=== PATIENT | female | born 1960 | race American Indian/Alaskan Native ===

== ENCOUNTER 2016-09-14 17:28 | Emergency (ER) | payer MEDICAID ==
[2016-09-14 17:42] VITALS: BP 103/65
[2016-09-14 18:18] LABS: Basophils % (Auto) 1.9 % (0.0-1.8); Eosinophils % (Auto) 1.9 % (0.0-4.3); Hematocrit 35.6 % (30.3-42.9); Hemoglobin 11.6 gm/dl (10.1-14.3); Mean Corpuscular HGB Conc 33 % (30-34); Mean Corpuscular Hemoglobin 27 pg (28-32); Mean Corpuscular Volume 83 fl (79-97); Platelet Count 389 K/mm3 (140-440); Red Blood Count 4.31 M/mm3 (3.65-5.03); Red Cell Distribution Width 14.9 % (13.2-15.2); White Blood Count 7.5 K/mm3 (4.5-11.0)
[2016-09-14 19:04] LABS: Alanine Aminotransferase 5 units/L (7-56); Albumin 4.2 g/dL (3.9-5); Albumin/Globulin Ratio 1.4 %; Alkaline Phosphatase 141 units/L (35-129); Anion Gap 17 mmol/L; BUN/Creatinine Ratio 13.75; Bilirubin,Total < 0.2 mg/dL (0.1-1.2); Blood Urea Nitrogen 11 mg/dL (7-17); Carbon Dioxide 25 mmol/L (22-30); Chloride 98.3 mmol/L (98-107); Glucose 75 mg/dL (65-100); Lipase 28 units/L (13-60); Potassium 4.6 mmol/L (3.6-5.0); Sodium 136 mmol/L (137-145); Total Protein 7.3 g/dL (6.3-8.2)
[2016-09-14 19:08] LABS: Bacteria,Urine 2+ /HPF (Negative); Bilirubin,Urine NEG (Negative); Blood,Urine NEG (Negative); Ketones,Urine NEG (Negative); Leukocyte Esterase,Urine NEG (Negative); Mucus,Urine FEW /HPF; Nitrite,Urine NEG (Negative); Protein,Urine <15 mg/dL mg/dL (Negative); Urobilinogen,Urine < 2.0 mg/dL (<2.0)
--- NOTE | 2016-09-16 16:42 | ED Elopement Review ---
ED Pt Elopement review - Results review Lab results: Laboratory Tests 09/14/16 09/14/16 09/14/16 18:06 18:06 18:16 WBC 7.5 RBC 4.31 Hgb 11.6 Hct 35.6 MCV 83 MCH 27 L MCHC 33 RDW 14.9 Plt Count 389 Lymph % (Auto) 42.6 H [place] % (Auto) 7.4 H Eos % (Auto) 1.9 Baso % (Auto) 1.9 H Lymph # 3.2 [place] # 0.6 Eos # 0.1 Baso # 0.1 Seg Neutrophils % 46.2 Seg Neutrophils # 3.5 Sodium 136 L Potassium 4.6 Chloride 98.3 Carbon Dioxide 25 Anion Gap 17 BUN 11 Creatinine 0.8 Estimated GFR > 60 BUN/Creatinine Ratio 13.75 Glucose 75 Calcium 9.0 Total Bilirubin < 0.2 AST 11 ALT 5 L Alkaline Phosphatase 141 H Total Protein 7.3 Albumin 4.2 Albumin/Globulin Ratio 1.4 Lipase 28 Urine Color Yellow Urine Turbidity Clear Urine pH 5.0 Ur Specific [place] 1.013 Urine Protein <15 mg/dl Urine Glucose (UA) Neg Urine Ketones Neg Urine Blood Neg Urine Nitrite Neg Urine Bilirubin Neg Urine Urobilinogen < 2.0 Ur Leukocyte Esterase Neg Urine WBC (Auto) 1.0 Urine RBC (Auto) 1.0 U Epithel Cells (Auto) 1.0 Urine Bacteria (Auto) 2+ Urine Mucus Few - Call Back decision Pt Call Back Decision: No action required
== END 2016-09-14 22:21 | disposition left against medical advice (07) ==
LOC: ED 17:28
DX: R45.851 Suicidal ideations (principal); R10.9 Unspecified abdominal pain; Z53.21 Procedure and treatment not carried out due to patient leaving prior to being seen by health care provider
CPT/HCPCS: 36415; 80053; 81001; 83690; 85025; 93005; 93010

== ENCOUNTER 2016-11-19 15:23 | Emergency (ER) | payer MEDICAID ==
[2016-11-19 16:37] LABS: Urine Drugs of Abuse Note Disclamer
[2016-11-19 16:53] LABS: Basophils % (Auto) 0.8 % (0.0-1.8); Eosinophils % (Auto) 2.1 % (0.0-4.3); Hemoglobin 11.1 gm/dl (10.1-14.3); Mean Corpuscular HGB Conc 33 % (30-34); Mean Corpuscular Hemoglobin 27 pg (28-32); Mean Corpuscular Volume 82 fl (79-97); Platelet Count 291 K/mm3 (140-440); Red Blood Count 4.14 M/mm3 (3.65-5.03); Red Cell Distribution Width 17.5 % (13.2-15.2); White Blood Count 7.3 K/mm3 (4.5-11.0)
[2016-11-19 17:02] LABS: Bacteria,Urine 2+ /HPF (Negative); Bilirubin,Urine NEG (Negative); Blood,Urine NEG (Negative); Ketones,Urine NEG (Negative); Leukocyte Esterase,Urine NEG (Negative); Mucus,Urine FEW /HPF; Nitrite,Urine NEG (Negative); Protein,Urine <15 mg/dL mg/dL (Negative); Urobilinogen,Urine < 2.0 mg/dL (<2.0); WBC,Urine < 1.0 /HPF (0.0-6.0)
[2016-11-19 17:03] LABS: RBC,Urine < 1.0 /HPF (0.0-6.0)
[2016-11-19 17:11] LABS: Anion Gap 16 mmol/L; BUN/Creatinine Ratio 14.28; Blood Urea Nitrogen 10 mg/dL (7-17); Calcium 8.7 mg/dL (8.4-10.2); Carbon Dioxide 24 mmol/L (22-30); Chloride 99.3 mmol/L (98-107); Glucose 120 mg/dL (65-100); Potassium 3.9 mmol/L (3.6-5.0); Sodium 135 mmol/L (137-145)
[2016-11-19] MEDS ORDERED: ZOFRAN IV ONE (21:58)
[2016-11-19] MEDS ORDERED: NACL 0.9% 1000 ML 1,000 ML IV ONE (21:58)
[2016-11-19] MEDS ORDERED: DILAUDID IV ONE (21:58)
--- NOTE | 2016-11-19 22:04 | Emergency Department Report ---
ED General Adult HPI - General Chief complaint: Psych Stated complaint: DEPRESSION Time Seen by Provider: 11/19/16 21:49 Source: patient Mode of arrival: Ambulatory Limitations: No Limitations - History of Present Illness Initial comments: This is a 56-year-old female who presents to the ED initially because of headache. She states that while she was waiting in the waiting room that the headache settled into her pancreas. She states she does have a history of chronic pancreatitis. She is had numerous pancreas problems since having her gallbladder removed last year with subsequent bile leak and else associated acute pancreatitis that converted to pump chronic pancreatitis. Patient was given a prescription for Percocet 10 mg tablets in May of last year. She just ran out out a week ago. She states that she is usually able to control her pains pretty well. He denies significant nausea but there is mild component of this. She denies any specific trauma. She does not drink any alcohol whatsoever. She denies any illicit drug use as well. Patient indicates as well that she has major depression. She takes Effexor for her depression. She states this controls her depression quite well in general. She follows up with a day program in the area. She states this is beneficial thing in her life she feels that she is doing relatively well in general. When I ask her specifically about suicidal ideations., She indicates that she feels like she wants evaluation is experiencing the pain she has with pancreatitis but reports when she is otherwise feeling fine that she does not have these thoughts of harm to herself. She denies any homicidal ideations. She denies any auditory or visual hallucinations. Patient states that she would never act out on a suicidal comment as those she is making today. Severity scale (0 -10): 10 - Related Data Previous Rx's Medication Instructions Recorded Last Taken Type Oxycodone HCl/Acetaminophen 1 each PO Q6HR PRN #30 tablet 11/20/16 Unknown Rx [Percocet 10/325 mg] Allergies Allergy/AdvReac Type Severity Reaction Status Date / Time bupropion HCl AdvReac Hives Verified 09/14/16 17:45 [From Wellbutrin] ketorolac tromethamine AdvReac Hives Verified 09/14/16 17:45 [From Toradol] sumatriptan [From Imitrex] AdvReac Hives Verified 09/14/16 17:45 sumatriptan succinate AdvReac Hives Verified 09/14/16 17:45 [From Imitrex] ED Review of Systems ROS: Stated complaint: DEPRESSION Other details as noted in HPI Comment: All other systems reviewed and negative Constitutional: denies: chills, fever Eyes: denies: eye pain, eye discharge, vision change ENT: denies: ear pain, throat pain Respiratory: denies: cough, shortness of breath, wheezing Cardiovascular: denies: chest pain, palpitations Endocrine: no symptoms reported Gastrointestinal: abdominal pain, nausea. denies: diarrhea Genitourinary: denies: urgency, dysuria, discharge Musculoskeletal: denies: back pain, joint swelling, arthralgia Skin: denies: rash, lesions Neurological: headache. denies: weakness, paresthesias Psychiatric: depression, suicidal thoughts. denies: anxiety Hematological/Lymphatic: denies: easy bleeding, easy bruising ED Past Medical Hx - Past Medical History Previous Medical History?: Yes Hx Headaches / Migraines: Yes Hx Psychiatric Treatment: Yes Hx COPD: Yes Additional medical history: pancreatitis, ulcers vaginal rectal CA - Surgical History Past Surgical History?: Yes Hx Cholecystectomy: Yes Hx Appendectomy: Yes - Social History Smoking Status: Current Every Day Smoker Substance Use Type: Prescribed - Medications Home Medications: Home Medications Medication Instructions Recorded Confirmed Last Taken Type Oxycodone HCl/Acetaminophen 1 each PO Q6HR PRN #30 tablet 11/20/16 Unknown Rx [Percocet 10/325 mg] ED Physical Exam - General Limitations: No Limitations General appearance: alert, in distress (mild discomfort), other (wearing darkened sunglasses) - Head Head exam: Present: atraumatic, normocephalic - Eye Eye exam: Present: normal appearance, EOMI. Absent: scleral icterus - ENT ENT exam: Present: normal exam, normal orophraynx, mucous membranes moist, other (no temporal artery tenderness) - Neck Neck exam: Present: normal inspection, full ROM. Absent: tenderness, meningismus, lymphadenopathy - Respiratory Respiratory exam: Present: normal lung sounds bilaterally. Absent: respiratory distress, wheezes, rales - Cardiovascular Cardiovascular Exam: Present: regular rate, normal rhythm. Absent: systolic murmur, diastolic murmur, rubs, gallop - GI/Abdominal GI/Abdominal exam: Present: soft, tenderness (epigastric region.), normal bowel sounds. Absent: guarding, rebound, organomegaly, pulsatile mass - Extremities Exam Extremities exam: Present: normal inspection, normal capillary refill. Absent: tenderness, pedal edema, calf tenderness - Back Exam Back exam: Present: normal inspection. Absent: tenderness, CVA tenderness (R), CVA tenderness (L) - Neurological Exam Neurological exam: Present: alert, oriented X3 - Psychiatric Psychiatric exam: Present: normal affect, normal mood - Skin Skin exam: Present: warm, dry, intact, normal color. Absent: rash ED Course Vital Signs 11/19/16 11/19/16 11/19/16 15:43 17:47 20:36 Temperature 97.8 F 98.4 F Pulse Rate 86 86 76 Respiratory 20 18 20 Rate Blood Pressure 123/78 119/72 130/70 Blood Pressure [Left] O2 Sat by Pulse 98 100 Oximetry 11/19/16 22:45 Temperature Pulse Rate 79 Respiratory 18 Rate Blood Pressure Blood Pressure 104/72 [Left] O2 Sat by Pulse 98 Oximetry - Reevaluation(s) Reevaluation #1: 11/19/16 22:03 Patient very articulate and appropriate for me here. She does noel very openly that she does have a high pain tolerance and threshold. She also indicates that it takes a large amount of pain medication when she does have pain to get it under control. She again states that she only received this one prescription the last 6 months. She has been able to make it last for the entire time. My initial impression of her as I do not deem her as a legitimate suicidal risk. She does get appropriate follow-up and knows how to access her therapist. She is on antidepressants and is compliant with it. She recognizes with good insight etiology of her issue is mostly pain discomfort and she is seeking care for this at this time. Reevaluation #2: 11/20/16 00:13 Patient did receive pain medications with moderate to good result. She was noted to be quite somnolent after Dilaudid administration. She did actually require supplemental oxygen. After the medication she is actually requesting more medication. I told her did not feel this was responsible thing to do. I do not get the impression that she is drug-seeking. I feel that she likely has legitimate pains but she just doesn't know how to adequately manage her pain. I do think there is a psychiatric component of this as well. It is a long conversation again with the patient regarding depression and suicidal ideations. She is not actively suicidal nor do I have concerns with sending her home. She has very good insight. She has very good follow-up with a therapist that she is comfortable with and she does not access health care as well as being compliant with her pain medications. I will write her for some more pain medication to get by the next little while. I did encourage her to follow up with her GI doctor to consider joint terminal attack controller management of her pain. This will be an ongoing issue for her return to the chronic pancreatitis. She also agrees to follow up with her therapist later this week. ED Medical Decision Making - Lab Data Result diagrams: 11/19/16 16:35 11/19/16 16:35 Critical care attestation.: If time is entered above; I have spent that time in minutes in the direct care of this critically ill patient, excluding procedure time. ED Disposition Clinical Impression: Pancreatitis, chronic Qualifiers: Pancreatitis type: biliary Qualified Code(s): K86.1 - Other chronic pancreatitis Cephalgia Qualifiers: Headache chronicity pattern: acute headache Intractability: not intractable Depression Qualifiers: Depression Type: major depressive disorder Major depression recurrence: recurrent Active/Remission status: currently active Major depression episode severity: moderate Qualified Code(s): F33.1 - Major depressive disorder, recurrent, moderate Disposition: DISCHARGED TO HOME OR SELFCARE Is pt being admited?: No Does the pt Need Aspirin: No Condition: Stable Additional Instructions: Follow-up with your therapist later this week. Take your medications as prescribed. Follow-up with your GI doctor regarding her chronic pancreatitis. Be careful with your diet. Use your pain medication responsibly. Consider follow-up for pain management. Prescriptions: Oxycodone HCl/Acetaminophen [Percocet 10/325 mg] 1 each PO Q6HR PRN #30 tablet PRN Reason: Pain Referrals: PRIMARY CARE, [Primary Care Provider] - 3-5 Days Time of Disposition: 00:16
[2016-11-20 02:58] VITALS: BP 139/65
== END 2016-11-20 03:00 | disposition home or self-care (01) ==
LOC: ED 15:23 → EEVIPCON 15:23 → ED 11-20 03:00
DX: K86.1 Other chronic pancreatitis (principal); R51 Headache; F33.1 Major depressive disorder, recurrent, moderate; G43.909 Migraine, unspecified, not intractable, without status migrainosus; J44.9 Chronic obstructive pulmonary disease, unspecified; Z90.49 Acquired absence of other specified parts of digestive tract; Z90.89 Acquired absence of other organs; F17.200 Nicotine dependence, unspecified, uncomplicated; Z88.8 Allergy status to other drugs, medicaments and biological substances
CPT/HCPCS: 36415; 80048; 80307; 81001; 85025; 96361; 96374; 96375; 99283; G0480; J1170; J2405; J7030; 80320

== ENCOUNTER 2016-11-20 08:43 | Emergency (ER) | payer MEDICAID ==
[2016-11-20] MEDS ORDERED: DILAUDID IM ONE (12:04)
[2016-11-20] MEDS ORDERED: ZOFRAN IM ONE (12:04)
[2016-11-20 13:05] LABS: Alanine Aminotransferase 17 units/L (7-56); Albumin 3.5 g/dL (3.9-5); Albumin/Globulin Ratio 1.2 %; Alkaline Phosphatase 113 units/L (35-129); Bilirubin,Total < 0.2 mg/dL (0.1-1.2); Lipase 24 units/L (13-60); Total Protein 6.4 g/dL (6.3-8.2)
[2016-11-20 13:07] LABS: Bilirubin,Direct < 0.2 mg/dL (0-0.2)
--- NOTE | 2016-11-20 14:09 | Emergency Department Report ---
ED Abdominal Pain HPI - General Chief Complaint: Pain General Stated Complaint: GENERAL PAIN Time Seen by Provider: 11/20/16 11:19 Source: patient Mode of arrival: Ambulatory Limitations: No Limitations - History of Present Illness Initial Comments: 56 year old female with a past medical history COPD, migraines, major depression rectal cancer, and chronic pancreatitis with previous cholecystectomy , appendectomy presents to the hospital complains of epigastric abdominal pain. Patient states pain is typical to previous bouts of chronic pancreatitis. Pain is stabbing, constant, radiates to the back. Positive Associated nausea without vomiting. Patient was seen here yesterday for the same symptoms by Dr. Proctor. Patient was discharged home with Percocet and was in the waiting room awaiting her ride back home. Transport never showed up. Patient also attempted to fill Percocet at pharmacy across the street but because she only has a photocopy of her IV they would not fill the medication. Patient tends to have a friend to the medication somehow when she gets home since she has lost her her copy of her ID. She checked back in requesting medication for pain and nausea since they have worsened during her wait for a ride home. Pain is rated 10/10 intensity, constant, worse with palpation and improved with narcotic pain medication Severity scale (0 -10): 2 - Related Data Previous Rx's Medication Instructions Recorded Last Taken Type Ondansetron [Zofran Odt] 4 mg PO Q8HR PRN #20 tab.rapdis 11/20/16 Unknown Rx Oxycodone HCl/Acetaminophen 1 each PO Q6HR PRN #30 tablet 11/20/16 Unknown Rx [Percocet 10/325 mg] Allergies Allergy/AdvReac Type Severity Reaction Status Date / Time bupropion HCl AdvReac Hives Verified 09/14/16 17:45 [From Wellbutrin] ketorolac tromethamine AdvReac Hives Verified 09/14/16 17:45 [From Toradol] sumatriptan [From Imitrex] AdvReac Hives Verified 09/14/16 17:45 sumatriptan succinate AdvReac Hives Verified 09/14/16 17:45 [From Imitrex] ED Review of Systems ROS: Stated complaint: GENERAL PAIN Other details as noted in HPI Comment: All other systems reviewed and negative Other: Constitutional: No fevers chills or weight loss Eyes: No eye pain visual changes or discharge ENT: No ear pain or throat pain Neck: Denies pain Respiratory: Denies cough wheezing shortness of breath Cardiovascular: Denies chest pain, palpitations, syncope GI: as per hpi : Denies dysuria Musculoskeletal: Denies back pain, joint swelling Skin: Denies rash, lesions, erythema Neurologic: Denies headache, numbness, weakness Psychiatric: Denies suicidal ideation, hallucinations ED Past Medical Hx - Past Medical History Previous Medical History?: Yes Hx Headaches / Migraines: Yes Hx Psychiatric Treatment: Yes (major depression) Hx COPD: Yes Additional medical history: pancreatitis, ulcers vaginal rectal CA - Surgical History Past Surgical History?: Yes Hx Cholecystectomy: Yes Hx Appendectomy: Yes - Social History Smoking Status: Current Every Day Smoker Substance Use Type: Alcohol, Non Opiate Pain, Prescribed - Medications Home Medications: Home Medications Medication Instructions Recorded Confirmed Last Taken Type Ondansetron [Zofran Odt] 4 mg PO Q8HR PRN #20 tab.rapdis 11/20/16 Unknown Rx Oxycodone HCl/Acetaminophen 1 each PO Q6HR PRN #30 tablet 11/20/16 Unknown Rx [Percocet 10/325 mg] ED Physical Exam - General Limitations: No Limitations - Other Other exam information: General: No limitations, patient is alert in no acute distress Head exam: Atraumatic, normocephalic Eyes exam: Normal appearance, pupils equal reactive to light, extraocular movements intact ENT: Moist mucous membrane, normal oropharynx Neck exam: Normal inspection, full range of motion, no meningismus nontender Respiratory exam: Clear to auscultation bilateral, no wheezes, rales, crackles Cardiovascular: Normal rate and rhythm, normal heart sounds Abdomen: Soft, nondistended, epigastric tenderness, with normal bowel sounds, no rebound, or guarding Extremity: Full range of motion normal inspection no deformity Back: Normal Inspection, full range of motion, no tenderness Neurologic: Alert, oriented x3, cranial nerves intact, no motor or sensory deficit Psychiatric: normal affect, normal mood Skin: Warm, dry, intact ED Course Vital Signs 11/20/16 11/20/16 08:48 12:54 Temperature 98.1 F Pulse Rate 77 Respiratory 20 Rate Blood Pressure 129/82 O2 Sat by Pulse 100 98 Oximetry - Reevaluation(s) Reevaluation #1: 11/20/16 14:17 Pain improved with Dilaudid and Zofran IM. No vomiting and ED. ED Medical Decision Making - Medical Decision Making Labs from last night reviewed and patient had LFTs and cardiac enzymes drawn with this visit which were normal. Patient is not actively vomiting and pain is controlled. She will be discharged with same plan to fill her currently prescribed medication and to follow up with her primary care doctor - Differential Diagnosis drug-seeking, pancreatitis, otitis, gastritis Critical Care Time: No Critical care attestation.: If time is entered above; I have spent that time in minutes in the direct care of this critically ill patient, excluding procedure time. ED Disposition Clinical Impression: Pancreatitis, chronic Disposition: DISCHARGED TO HOME OR SELFCARE Is pt being admited?: No Does the pt Need Aspirin: No Condition: Stable Instructions: Pancreatitis (ED) Additional Instructions: Taken currently prescribed medications as needed. Return if symptoms worsen. Prescriptions: Ondansetron [Zofran Odt] 4 mg PO Q8HR PRN #20 tab.rapdis PRN Reason: Nausea And Vomiting Referrals: PRIMARY CARE, [Primary Care Provider] - 3-5 Days [facility] [Provider Group] - 3-5 Days Time of Disposition: 14:19
[2016-11-20 14:37] VITALS: BP 110/62
== END 2016-11-20 14:50 | disposition home or self-care (01) ==
LOC: ED 08:43
DX: K86.1 Other chronic pancreatitis (principal); G43.909 Migraine, unspecified, not intractable, without status migrainosus; F32.9 Major depressive disorder, single episode, unspecified; J44.9 Chronic obstructive pulmonary disease, unspecified; F17.200 Nicotine dependence, unspecified, uncomplicated; Z90.49 Acquired absence of other specified parts of digestive tract; Z88.8 Allergy status to other drugs, medicaments and biological substances
CPT/HCPCS: 36415; 80074; 83690; 96372; 99283; J1170; J2405

== ENCOUNTER 2016-11-28 15:27 | Emergency (ER) | payer MEDICAID ==
[2016-11-28 16:33] LABS: Basophils % (Auto) 0.8 % (0.0-1.8); Eosinophils % (Auto) 1.8 % (0.0-4.3); Hematocrit 33.4 % (30.3-42.9); Mean Corpuscular HGB Conc 33 % (30-34); Mean Corpuscular Hemoglobin 27 pg (28-32); Mean Corpuscular Volume 83 fl (79-97); Platelet Count 212 K/mm3 (140-440); Red Blood Count 4.04 M/mm3 (3.65-5.03); Red Cell Distribution Width 17.6 % (13.2-15.2); White Blood Count 7.4 K/mm3 (4.5-11.0)
[2016-11-28 16:43] LABS: Bilirubin,Urine NEG (Negative); Blood,Urine NEG (Negative); Ketones,Urine NEG (Negative); Leukocyte Esterase,Urine NEG (Negative); Mucus,Urine FEW /HPF; Nitrite,Urine NEG (Negative); Protein,Urine <15 mg/dL mg/dL (Negative); RBC,Urine < 1.0 /HPF (0.0-6.0); Urobilinogen,Urine < 2.0 mg/dL (<2.0)
[2016-11-28 16:52] LABS: Alanine Aminotransferase 18 units/L (7-56); Albumin 3.7 g/dL (3.9-5); Albumin/Globulin Ratio 1.5 %; Alkaline Phosphatase 102 units/L (35-129); Anion Gap 16 mmol/L; BUN/Creatinine Ratio 6.15; Bilirubin,Total < 0.2 mg/dL (0.1-1.2); Blood Urea Nitrogen 8 mg/dL (7-17); Calcium 8.6 mg/dL (8.4-10.2); Carbon Dioxide 24 mmol/L (22-30); Chloride 102.7 mmol/L (98-107); Glucose 81 mg/dL (65-100); Lipase 33 units/L (13-60); Potassium 4.3 mmol/L (3.6-5.0); Sodium 138 mmol/L (137-145); Total Protein 6.1 g/dL (6.3-8.2)
[2016-11-29] MEDS: MORPHINE IV ONE (01:08)
--- NOTE | 2016-11-29 01:34 | Emergency Department Report ---
ED Abdominal Pain HPI - General Chief Complaint: Abdominal Pain Stated Complaint: abdominal pain Time Seen by Provider: 11/29/16 00:02 Source: patient Mode of arrival: Ambulatory Limitations: No Limitations - History of Present Illness Initial Comments: Patient is a 56-year-old woman with a history of chronic pancreatitis presenting with right upper quadrant and left upper quadrant pain. Patient reports she's been treated by a doctor non-at another hospital for chronic pancreatitis with unknown etiology. Patient now reports to her last tablet of Percocet yesterday and now has no more pain medication. Patient does report she finished 30 tabs in 5 days. Otherwise no fevers, chills, vomiting, chest pain, trauma, antibiotic use, recent surgery, travel, or sick contacts MD Complaint: abdominal pain -: month(s) Location: LUQ, RUQ Severity scale (0 -10): 10 Consistency: constant Improves With: medication Worsens With: nothing - Related Data Previous Rx's Medication Instructions Recorded Last Taken Type Ondansetron [Zofran ODT TAB] 4 mg PO Q8HR PRN #20 tab.rapdis 11/29/16 Unknown Rx Oxycodone HCl/Acetaminophen 1 each PO Q6HR PRN #12 tablet 11/29/16 Unknown Rx [Percocet 10/325 mg] Allergies Allergy/AdvReac Type Severity Reaction Status Date / Time bupropion HCl AdvReac Hives Verified 09/14/16 17:45 [From Wellbutrin] ketorolac tromethamine AdvReac Hives Verified 09/14/16 17:45 [From Toradol] sumatriptan [From Imitrex] AdvReac Hives Verified 09/14/16 17:45 sumatriptan succinate AdvReac Hives Verified 09/14/16 17:45 [From Imitrex] ED Review of Systems ROS: Stated complaint: PASSED OUT/SEVERE MIGRAINE Other details as noted in HPI Comment: All other systems reviewed and negative ED Past Medical Hx - Past Medical History Previous Medical History?: Yes Hx Headaches / Migraines: Yes Hx Psychiatric Treatment: Yes (major depression) Hx COPD: Yes Additional medical history: pancreatitis, ulcers vaginal rectal CA - Surgical History Hx Cholecystectomy: Yes Hx Appendectomy: Yes - Social History Smoking Status: Never Smoker Substance Use Type: None - Medications Home Medications: Home Medications Medication Instructions Recorded Confirmed Last Taken Type Ondansetron [Zofran ODT TAB] 4 mg PO Q8HR PRN #20 tab.rapdis 11/29/16 Unknown Rx Oxycodone HCl/Acetaminophen 1 each PO Q6HR PRN #12 tablet 11/29/16 Unknown Rx [Percocet 10/325 mg] ED Physical Exam - General Limitations: No Limitations General appearance: alert, in no apparent distress - Head Head exam: Present: atraumatic, normocephalic - Eye Eye exam: Present: normal appearance - ENT ENT exam: Present: mucous membranes moist - Neck Neck exam: Present: normal inspection - Respiratory Respiratory exam: Present: normal lung sounds bilaterally. Absent: respiratory distress - Cardiovascular Cardiovascular Exam: Present: regular rate, normal rhythm. Absent: systolic murmur, diastolic murmur, rubs, gallop - GI/Abdominal GI/Abdominal exam: Present: soft, tenderness (RUQ and SUN), normal bowel sounds, other (laparoscopic scars). Absent: distended (RUQ and LUQ), guarding, rebound , rigid - Extremities Exam Extremities exam: Present: normal inspection - Back Exam Back exam: Present: normal inspection - Neurological Exam Neurological exam: Present: alert, oriented X3 - Psychiatric Psychiatric exam: Present: normal affect, normal mood - Skin Skin exam: Present: warm, dry, intact, normal color. Absent: rash ED Course Vital Signs 11/28/16 11/28/16 11/29/16 16:02 21:13 00:49 Temperature 98 F 97.9 F Pulse Rate 80 68 56 L Respiratory 20 18 14 Rate Blood Pressure 121/64 128/87 127/75 O2 Sat by Pulse 100 100 97 Oximetry 11/29/16 11/29/16 00:56 01:50 Temperature Pulse Rate Respiratory 18 20 Rate Blood Pressure O2 Sat by Pulse 99 Oximetry ED Medical Decision Making - Lab Data Result diagrams: 11/28/16 16:18 11/28/16 16:18 - EKG Data -: EKG Interpreted by Me ([id number]) EKG shows normal: sinus rhythm, axis (normal axis), intervals (QTc:407ms), ST-T waves ((-)ST/T changes, no STEMI) Critical care attestation.: If time is entered above; I have spent that time in minutes in the direct care of this critically ill patient, excluding procedure time. ED Disposition Clinical Impression: Abdominal pain Disposition: DISCHARGED TO HOME OR SELFCARE Is pt being admited?: No Condition: Stable Instructions: Abdominal Pain (ED) Prescriptions: Ondansetron [Zofran ODT TAB] 4 mg PO Q8HR PRN #20 tab.rapdis PRN Reason: Nausea And Vomiting Oxycodone HCl/Acetaminophen [Percocet 10/325 mg] 1 each PO Q6HR PRN #12 tablet PRN Reason: Pain Referrals: PRIMARY CARE,MD [Primary Care Provider] - 3-5 Days
[2016-11-29] MEDS: ZOFRAN IV ONE (01:50)
[2016-11-29] MEDS: SUBLIMAZE IV ONE (01:50)
[2016-11-29] MEDS: NACL 0.9% 1000 ML 1,000 ML IV ONE (01:55)
[2016-11-29] MEDS: EFFEXOR PO ONE (05:18)
[2016-11-29] MEDS: TYLENOL PO ONE (08:54)
[2016-11-29] MEDS: HABITROL TD ONE (08:55)
[2016-11-29 09:27] VITALS: BP 93/68
--- NOTE | 2016-11-29 15:45 | Emergency Department Report ---
Blank Doc - Documentation Documentation: Patient has been evaluated by mental health. Patient is currently denying suicidal thoughts. She states she began having suicidal thoughts following medication administration. Mental health recommendation is to increase in the 1013 and discharge the patient home with outpatient referral. I have reexamined the patient and agreed that the patient is no longer suicidal and does not meet inpatient criteria. Form 1013 will be rescinded and the patient will be discharged at this time.
== END 2016-11-29 15:30 | disposition home or self-care (01) ==
LOC: ED 15:27
DX: R10.11 Right upper quadrant pain (principal); G43.909 Migraine, unspecified, not intractable, without status migrainosus; J44.9 Chronic obstructive pulmonary disease, unspecified; F32.9 Major depressive disorder, single episode, unspecified
CPT/HCPCS: 36415; 80053; 81001; 83690; 85025; 93005; 93010; 96361; 96374; 96375; 99284; J2405; J3010; J7030